=== PATIENT | male | born 1950 | race Hispanic/Latino ===

== ENCOUNTER 2023-07-02 16:23 | Emergency (ER) | payer OTHER ==
--- OUTSIDE RECORDS SUMMARY | 2023-07-02 16:40 | XMS REPORT | Continuity of Care Document ---
:1950 Author Organization [facility] t Address [address] [facility] [address] [place] [address] Care Team Providers Name Role Phone Brian Rosales Attending Clinician Unavailable LISSET GRAY Attending Clinician Unavailable PEE MALONEY Attending Clinician Unavailable MICHELL RICKETTS Attending Clinician Unavailable Lisset Gray MD Attending Clinician Doctor Unassigned, [place] Attending Clinician Unavailable Only, Adc Test Attending Clinician Unavailable Pob, Adc Lab Main Attending Clinician Unavailable LISSET GRAY Admitting Clinician Unavailable Lisset Gray MD Admitting Clinician Payers Payer Name Policy Type Policy Number Effective Date Expiration Date Sharri moreira MEDICARE PART A [id number] 2013 \T\ B 00:00:00 MEDICARE-PART B 5 [id number] 2020 00:00:00 WEB TPA 4 [id number] 2020 00:00:00 Problems Condition Condition Condition Status Onset Resolution Last Treating Co mments Source Name Details Category Date Date Treatment Clinician Date [id number] Mixed Problem Common hyperlipid [facility]ia [facility] [id number] Essential Problem Comm on (primary) Spirit hypertensi - [facility] [id number] Type 2 Problem Common diabetes Spirit mellitus - [facility] with [facility] long-term current use of insulin [id number] 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 [facility] Allergies, Adverse Reactions, Alerts Allergy Allergy Status Severity Reaction(s) Onset Inactive Treating Comm ents Source Name Type Date Date Clinician NO KNOWN Drug Active Univers ALLERGIE Class ity of S [facility] Social History Social Habit Start Date Stop Date Quantity Comments Source Exposure to Not sure [facility] SARS-CoV-2 (event) Medica l Branch History of Tobacco Common [facility] - [facility] Use [facility] Sex Assigned At Common Sp kiana - [facility] Tobacco use and 2020-12-08 2020-12-08 Never used [facility] exposure 00:00:00 00:00:00 Medical Branch Smoking Status Start Date Stop Date Source Never Smoker [facility] Unknown if ever smoked [facility] Medications Ordered Filled Start Stop Current Ordering Indication Dosage Frequency Signature Comments Components Source Medication Medication Date Date Medication? Clinician (SIG) Name Name aspirin 81 Yes 81mg Take 81 mg U nivers mg chewable 3-25 by mouth ity of tablet 14:37: daily. [address] Fenofibrate Yes 40mg Take 40 mg Univers 40 mg Tab 3-25 by mouth ity of 14:37: daily. [address] metFORMIN Yes 500mg Take 500 Uni vers 500 mg 3-25 mg by ity of tablet 14:37: mouth [address] [place] [address] ([facility] times [place] daily with meals. ramipriL 10 Yes 10mg Take 10 mg Univers mg capsule 3-25 by mouth ity o f 14:37: daily. [address] icosapent Yes Take by Unive rs ethyl 3-25 mouth. ity of (VASCEPA 14:37: [address] aspirin 81 Yes 81mg Take 81 mg U nivers mg chewable 3-25 by mouth ity of tablet 14:37: daily. [address] Fenofibrate Yes 40mg Take 40 mg Univers 40 mg Tab 3-25 by mouth ity of 14:37: daily. [address] metFORMIN Yes 500mg Take 500 Uni vers 500 mg 3-25 mg by ity of tablet 14:37: mouth 2 [place] [address] ([facility]) [facility] times [place] daily with meals. ramipriL 10 Yes 10mg Take 10 mg Univers mg capsule 3-25 by mouth ity o f 14:37: daily. [address] icosapent Yes Take by [facility] rs ethyl 3-25 mouth. ity of (VASCEPA 14:37: [place] ORAL) [address] [place] [address] lactated Yes 1000mL at 75 Univer s ringers IV 3-25 mL/hr, ity of infusion 14:15: 1,000 [place], [place] 1,000 mL 00 IV Medical Infusion, [place] CONTINUOUS , Starting Joaquina 12/09/20 at 0915, Until Discontinu ed, Routine, PACU HYDROcodone Yes 1{tbl} 1 tablet, Univers -acetaminop 3-25 Oral, ity of hen (NORCO 14:05: Q6HPRN, [place] 5) 5-325 mg 37 Starting [facility] norma tablet 1 Joaquina [place] tablet 12/09/20 at 0905, Until Discontinu ed, Routine, Pain (scale 4-6), PACU ondansetron Yes 4mg 4 mg, Slow Univers (ZOFRAN 3-25 IV Push, ity of (PF)) 14:05: PRN, 1 [place] injection 4 37 dose, Medical mg Starting Branch Joaquina 12/09/20 at 0905, Until Discontinu ed, Routine, Nausea and Vomiting (N/V), PACU water for Yes PRN, Univers irrigation 3-25 Starting ity o f irrigation 14:00: Jo[place]ina [place] solution 00 12/09/20 at Medic al 0900, [place] Until Discontinu ed, Routine, Intra-op NaCl 0.9% Yes PRN, Univers (NS) 3-25 Starting ity of injection 13:59: Jo[place] 00 12/09/20 at [facility] 0859, [place] Until Discontinu ed, Routine, Intra-op neomycin-po Yes PRN, [facility] s lymyxin-dex 3-25 Starting ity of amethasone 13:59: Joaqu[place] (MAXITROL) 00 12/09/20 at [facility] ical 3.5 0859[facility] mg/g-10,000 Until unit/g-0.1 Discontinu % ed, ophthalmic Routine, ointment Intra-op gentamicin 2021-0 Yes PRN, Univers injection 25 Starting ity of 13:58: [place] 00 12/09/20 at [facility] [address] [place] [address] Until Discontinu ed, BASSAM, Intra-op EPINEPHrine Yes PRN, Univer s (PF) - Starting ity of 1:1,000 (1 13:57: [place] mg/mL) 00 12/09/20 at [facility] (ADRENALIN 0857, Branch (PF)) Until injection Discontinu ed, Routine, Intra-op DUOVISC Yes PRN, Univers (DUOVISC 12-09 Starting ity of VISCO 13:57: [place] ELASTIC) 3 12/09/20 at [facility] ical %-4 %(0.5 0857, [place] mL) 1 % Until (0.55 mL) Discontinu intraocular ed, injection Routine, Intra-op dexamethaso Yes PRN, Univer s ne 12-09 Starting ity of (DECADRON 13:56: [place] PHOSPHATE) 12/09/20 at [facility] ical injection [address] [place] [address] Until Discontinu ed, Routine, Intra-op ceFAZolin Yes PRN, Univers (ANCEF) 12-09 Starting ity of injection 13:56: [place] 00 12/09/[address] Until Discontinu ed, BASSAM, Intra-op balanced Yes PRN, Univers salt soln 12-09 Starting ity of no.2 irrig. 13:55: Jo[place]ina [place] (BSS) 12/09/20 at [facility] ophthalmic 08, [place] solution Until Discontinu ed, Routine, Intra-op tetracaine Yes PRN, Univers (PONTOCAINE 12-09 Starting ity of ) 0.5 % 13:41: [place] ophthalmic 00 12/09/20 at [facility] ical drops [address] [place] [address] Until Discontinu ed, Routine, Intra-op eye block 0 Yes PRN, Univers syringe 11 12-09 Starting ity o f mL 13:41: [place] 00 12/09/20 at [facility] [address] [place] [address] Until Discontinu ed, Intra-op mydriatic 202- No .5mL 0.5 mL, Univ ers #5 12-09 Right Eye, ity of ophthalmic 12:45: 12:34 ONCE, 1 [place] solution 00 :00 dose, Joaquina Medica l 0.5 mL 12/09/20 at Branch syringe 0745, Routine, DSU Pre-op lactated 2020- No 1000mL at 42 Unive rs ringers IV 12-09 03-25 mL/hr, ity of infusion 12:45: 12:33 1,000 mL, [place] 1,000 mL 00 :00 IV Medical Infusion, [place] ONCE, 1 dose, Joaquina 12/09/20 at 0745, Routine, DSU Pre-op metFORMIN Yes 500mg Take 500 Uni vers 500 mg 3-23 mg by ity of tablet 18:23: mouth 2 [place] [address] (two) [facility] daily with meals. ramipriL 10 Yes 10mg Take 10 mg Univers mg capsule -23 by mouth ity o f 18:23: daily. [address] aspirin 81 Yes 81mg Take 81 mg U nivers mg chewable 3-23 by mouth ity of tablet 18:23: daily. [address] Fenofibrate Yes 40mg Take 40 mg Univers 40 mg Tab 3-23 by mouth ity of 18:23: daily. [address] Dorzolamide Dorzolamide No 1{drop_ BID Dorzolamid HCl-Timolol HCl-Timolol into_af e Mal Mal fected_ HCl-Timolo 22.3-6.8 22.3-6.8 eye} l Mal MG/ML MG/ML 22.3-6.8 MG/ML Fish Oil Fish Oil No Fish Oil Marion-3 Marion-3 Marion-3 metFORMIN metFORMIN No 1{table QD metFORMIN HCl 500 MG HCl 500 MG t_with_ HCl 500 MG a_meal} Fish Oil Fish Oil No Fish Oil Marion-3 Marion-3 Marion-3 Atorvastati Atorvastati No 1{table QD Atorvastat n Calcium n Calcium t} in Calcium 10 MG 10 MG 10 MG Aspirin Aspirin No 1{table QD Aspirin Adult Low Adult Low t} Adult Low Dose 81 MG Dose 81 MG Dose 81 MG Ramipril 10 Ramipril 10 No 1{capsu QD Ramipril MG MG le} 10 MG Rocklatan Rocklatan No 1{drop_ QD Rocklatan 0.02-0.005 0.02-0.005 into_af 0.02-0.005 % % fected_ % eye} Ramipril 10 Ramipril 10 No 1{capsu QD Ramipril MG MG le} 10 MG Marion 3 Marion 3 No Marion 3 Dorzolamide Dorzolamide No 1{drop_ BID Dorzolamid HCl-Timolol HCl-Timolol into_af e Mal Mal fected_ HCl-Timolo 22.3-6.8 22.3-6.8 eye} l Mal MG/ML MG/ML 22.3-6.8 MG/ML metFORMIN metFORMIN No 1{table QD metFORMIN HCl 500 MG HCl 500 MG t_with_ HCl 500 MG a_meal} Fish Oil Fish Oil No Fish Oil Marion-3 Marion-3 Marion-3 metFORMIN metFORMIN No 1{table QD metFORMIN HCl 500 MG HCl 500 MG t_with_ HCl 500 MG a_meal} Aspirin Aspirin No 1{table QD Aspirin Adult Low Adult Low t} Adult Low Dose 81 MG Dose 81 MG Dose 81 MG Ramipril 10 Ramipril 10 No 1{capsu QD Ramipril MG MG le} 10 MG Atorvastati Atorvastati No 1{table QD Atorvastat n Calcium n Calcium t} in Calcium 10 MG 10 MG 10 MG Ramipril 10 Ramipril 10 No 1{capsu QD Ramipril MG MG le} 10 MG Marion 3 Marion 3 No Marion 3 Dorzolamide Dorzolamide No 1{drop_ BID Dorzolamid HCl-Timolol HCl-Timolol into_af e Mal Mal fected_ HCl-Timolo 22.3-6.8 22.3-6.8 eye} l Mal MG/ML MG/ML 22.3-6.8 MG/ML [facility] No 1{drop_ QD Rocklatan 0.02-0.005 0.02-0.005 into_af 0.02-0.005 % % fected_ % eye} metFORMIN metFORMIN No 1{table QD metFORMIN HCl 500 MG HCl 500 MG t_with_ HCl 500 MG a_meal} Aspirin Aspirin No 1{table QD Aspirin Adult Low Adult Low t} Adult Low Dose 81 MG Dose 81 MG Dose 81 MG Fish Oil Fish Oil No Fish Oil Marion-3 Marion-3 Marion-3 Atorvastati Atorvastati No 1{table QD Atorvastat n Calcium n Calcium t} in Calcium 10 MG 10 MG 10 MG Ramipril 10 Ramipril 10 No 1{capsu QD Ramipril MG MG le} 10 MG [facility] No 1{drop_ QD Rocklatan 0.02-0.005 0.02-0.005 into_af 0.02-0.005 % % fected_ % eye} Marion 3 Marion 3 No Marion 3 Ramipril 10 Ramipril 10 No 1{capsu QD Ramipril MG MG le} 10 MG metFORMIN metFORMIN No 1{table QD metFORMIN HCl 500 MG HCl 500 MG t_with_ HCl 500 MG a_meal} Dorzolamide Dorzolamide No 1{drop_ BID Dorzolamid HCl-Timolol HCl-Timolol into_af e Mal Mal fected_ HCl-Timolo 22.3-6.8 22.3-6.8 eye} l Mal MG/ML MG/ML 22.3-6.8 MG/ML [facility] No 1{drop_ QD Rocklatan 0.02-0.005 0.02-0.005 into_af 0.02-0.005 % % fected_ % eye} Atorvastati Atorvastati No 1{table QD Atorvastat n Calcium n Calcium t} in Calcium 20 MG 20 MG 20 MG Marion 3 Marion 3 No Marion 3 Ramipril 10 Ramipril 10 No 1{capsu QD Ramipril MG MG le} 10 MG Aspirin Aspirin No 1{table QD Aspirin Adult Low Adult Low t} Adult Low Dose 81 MG Dose 81 MG Dose 81 MG Dorzolamide Dorzolamide No 1{drop_ BID Dorzolamid HCl-Timolol HCl-Timolol into_af e Mal Mal fected_ HCl-Timolo 22.3-6.8 22.3-6.8 eye} l Mal MG/ML MG/ML 22.3-6.8 MG/ML Fish Oil Fish Oil No Fish Oil Marion-3 Marion-3 Marion-3 metFORMIN metFORMIN No 1{table QD metFORMIN HCl 500 MG HCl 500 MG t_with_ HCl 500 MG a_meal} [facility] No 1{drop_ QD Rocklatan 0.02-0.005 0.02-0.005 into_af 0.02-0.005 % % fected_ % eye} Ramipril 10 Ramipril 10 No 1{capsu QD Ramipril MG MG le} 10 MG metFORMIN metFORMIN No 1{table QD metFORMIN HCl 500 MG HCl 500 MG t_with_ HCl 500 MG a_meal} Marion 3 Marion 3 No Marion 3 Aspirin Aspirin No 1{table QD Aspirin Adult Low Adult Low t} Adult Low Dose 81 MG Dose 81 MG Dose 81 MG Dorzolamide Dorzolamide No 1{drop_ BID Dorzolamid HCl-Timolol HCl-Timolol into_af e Mal Mal fected_ HCl-Timolo 22.3-6.8 22.3-6.8 eye} l Mal MG/ML MG/ML 22.3-6.8 MG/ML Fish Oil Fish Oil No Fish Oil Marion-3 Marion-3 Marion-3 Atorvastati Atorvastati No 1{table QD Atorvastat n Calcium n Calcium t} in Calcium 20 MG 20 MG 20 MG Dorzolamide Dorzolamide No 1{drop_ BID Dorzolamid HCl-Timolol HCl-Timolol into_af e Mal Mal fected_ HCl-Timolo 22.3-6.8 22.3-6.8 eye} l Mal MG/ML MG/ML 22.3-6.8 MG/ML Marion 3 Marion 3 No Marion 3 Fish Oil Fish Oil No Fish Oil Marion-3 Marion-3 Marion-3 Ramipril 10 Ramipril 10 No 1{capsu QD Ramipril MG MG le} 10 MG Rocklatan Rocklatan No 1{drop_ QD Rocklatan 0.02-0.005 0.02-0.005 into_af 0.02-0.005 % % fected_ % eye} Atorvastati Atorvastati No 1{table QD Atorvastat n Calcium n Calcium t} in Calcium 20 MG 20 MG 20 MG Aspirin Aspirin No 1{table QD Aspirin Adult Low Adult Low t} Adult Low Dose 81 MG Dose 81 MG Dose 81 MG metFORMIN metFORMIN No 1{table QD metFORMIN HCl 500 MG HCl 500 MG t_with_ HCl 500 MG a_meal} Dorzolamide Dorzolamide No 1{drop_ BID Dorzolamid HCl-Timolol HCl-Timolol into_af e Mal Mal fected_ HCl-Timolo 22.3-6.8 22.3-6.8 eye} l Mal MG/ML MG/ML 22.3-6.8 MG/ML Marion 3 Marion 3 No Marion 3 Fish Oil Fish Oil No Fish Oil Marion-3 Marion-3 Marion-3 Ramipril 10 Ramipril 10 No 1{capsu QD Ramipril MG MG le} 10 MG [facility] No 1{drop_ QD Rocklatan 0.02-0.005 0.02-0.005 into_af 0.02-0.005 % % fected_ % eye} Atorvastati Atorvastati No 1{table QD Atorvastat n Calcium n Calcium t} in Calcium 20 MG 20 MG 20 MG Aspirin Aspirin No 1{table QD Aspirin Adult Low Adult Low t} Adult Low Dose 81 MG Dose 81 MG Dose 81 MG metFORMIN metFORMIN No 1{table QD metFORMIN HCl 500 MG HCl 500 MG t_with_ HCl 500 MG a_meal} [facility] No 1{drop_ QD [place] 0.02-0.005 0.02-0.005 into_af 0.02-0.005 % % fected_ % eye} Atorvastati Atorvastati No 1{table QD Atorvastat n Calcium n Calcium t} in Calcium 20 MG 20 MG 20 MG Marion 3 Marion 3 No Marion 3 Ramipril 10 Ramipril 10 No 1{capsu QD Ramipril MG MG le} 10 MG Aspirin Aspirin No 1{table QD Aspirin Adult Low Adult Low t} Adult Low Dose 81 MG Dose 81 MG Dose 81 MG Vital Signs Vital Name Observation Time Observation Value Comments Source height 2022-07-31 10:00:00 68.5 [in_i] [facility] weight 2022-07-31 10:00:00 163.9 [lb_av] Common [facility] temperature 2022-07-31 10:00:00 97.7 [degF] [facility] bmi 2022-07-31 10:00:00 24.56 kg/m2 [facility] oximetry 2022-07-31 10:00:00 98 % Common [facility] respiratory rate 2022-07-31 10:00:00 18 /min Comm on [facility] blood pressure 2022-07-31 10:00:00 137 mm[Hg] Common [facility] - systolic [facility] blood pressure 2022-07-31 10:00:00 79 mm[Hg] Common [facility] - diastolic [facility] height 2022-03-29 08:40:00 68.5 [in_i] Common [facility] weight 2022-03-29 08:40:00 163.8 [lb_av] [facility] temperature 2022-03-29 08:40:00 98.0 [degF] [facility] bmi 2022-03-29 08:40:00 24.54 kg/m2 [facility] oximetry 2022-03-29 08:40:00 98 % [facility] respiratory rate 2022-03-29 08:40:00 18 /min Comm on [facility] blood pressure 2022-03-29 08:40:00 137 mm[Hg] Common [facility] - systolic [facility] blood pressure 2022-03-29 08:40:00 72 mm[Hg] Common [facility] diastolic [facility] height 2022-03-29 08:50:00 68.5 [in_i] Common [facility] weight 2022-03-29 08:50:00 163.8 [lb_av] [facility] temperature 2022-03-29 08:50:00 98.0 [degF] [facility] bmi 2022-03-29 08:50:00 24.54 kg/m2 [facility] oximetry 2022-03-29 08:50:00 98 % [facility] respiratory rate 2022-03-29 08:50:00 18 /min Comm on [facility] blood pressure 2022-03-29 08:50:00 137 mm[Hg] Common [facility] - systolic [facility] blood pressure 2022-03-29 08:50:00 72 mm[Hg] Common [facility] - diastolic [facility] height 2022-02-22 10:50:00 68 [in_i] [facility] weight 2022-02-22 10:50:00 164.1 [lb_av] [facility] temperature 2022-02-22 10:50:00 98.2 [degF] Common [facility] bmi 2022-02-22 10:50:00 24.95 kg/m2 [facility] oximetry 2022-02-22 10:50:00 97 % [facility] respiratory rate 2022-02-22 10:50:00 18 /min Comm on [facility] blood pressure 2022-02-22 10:50:00 135 mm[Hg] Common [facility] - systolic [facility] blood pressure 2022-02-22 10:50:00 74 mm[Hg] Common [facility] diastolic [facility] Body temperature 2020-12-09 14:25:00 36.67 [facility] 2020-12-09 14:25:00 26 /min [facility] Oxygen saturation in 2020-12-09 14:25:00 98 /min [facility] Arterial blood by [facility] Pulse oximetry Branch Systolic blood 2020-12-09 14:25:00 121 mm[Hg] Univer sity of pressure [facility] Diastolic blood 2020-12-09 14:25:00 74 mm[Hg] Unive [facility] Heart rate 2020-12-09 14:25:00 60 /min [facility] Body height 2020-12-08 17:15:[address] [facility] Body weight 2020-12-08 17:15:[address] [facility] BMI 2020-12-08 17:15:00 29.12 kg/m2 [facility] Procedures Procedure Date / Time Performed Performing Clinician Sourc e POCT GLUCOSE(AGE 2020-12-09 12:30:00 Leonardo Crawford [facility] >30DAYS) [facility] POCT GLUCOSE 2020-12-09 12:19:00 Lisset Gray [facility] (AUTOMATED) [facility] DAY SURGERY - ADC 2020-12-09 05:01:00 Doctor Unassigned, No [facility] ASSIGN[facility] OF BENEFITS 2020-11-30 16:01:25 Doctor Unassigned, No [facility] Encounters Start End Encounter Admission Attending Care Care Encounter Source Date/Time Date/Time Type Type Clinicians Facility Department ID 2023-03-26 Outpatient Rosales, STLMLC STLMLC [id number] Common 15:14:01 Brian 000[address] [facility] 2022-11-24 Outpatient Rosales, STLMLC STLMLC [id number] Common 08:52:03 [facility] [address] [facility] 2022-08-08 Outpatient Rosales, STLMLC STLMLC [id number] Common 12:29:01 Brian 23983 [facility] 2022-07-27 Outpatient Rosales, STLMLC STLMLC [id number] Common 09:58:02 Brian [address]8918 [facility] 2022-02-28 Outpatient Rosales, STLMLC STLMLC [id number] Common 16:01:04 [facility] [address] [facility] 2021-07-17 Outpatient Willi GRAY [facility] OPH [id number] Univers 06:19:47 LISSET pathak [facility] 2022-09-05 2022-09-05 (TEL) STLMLC STLMLC [id number] Co mmon 00:00:00 00:00:00 [facility] 2022-09-04 2022-09-04 Outpatient LYLY MALONEY [id number] [place] 00:00:00 00:00:00 PEE saavedra 2022-07-31 2022-07-31 OFFICE STLMLC STLMLC [id number] Co mmon 00:00:00 00:00:00 VISIT Spirit ESTAB PT - [facility] LEVEL 4 [facility] 2022-06-29 2022-06-29 (TEL) STLMLC STLMLC [id number] Co mmon 00:00:00 00:00:00 [facility] - [facility] 2022-03-29 2022-03-29 OFFICE STLMLC STLMLC [id number] Co mmon 00:00:00 00:00:00 VISIT Spirit ESTAB PT - [facility] LEVEL 4 [facility] 2022-03-29 2022-03-29 SUB ANNUAL STLMLC STLMLC [id number] Common 00:00:00 00:00:00 MCR [facility] WELLNESS - [facility] VISIT [facility] 2022-02-22 2022-02-22 (TEL) STLMLC STLMLC [id number] Co mmon 00:00:00 00:00:00 Spirit - [facility] 2022-02-22 2022-02-22 OFFICE STLMLC STLMLC [id number] Co mmon 00:00:00 00:00:00 VISIT NEW Spir it PT LEVEL 3 - [facility] 2021-12-16 2021-12-16 Outpatient LYLY MALONEY [id number] [place] 00:00:00 00:00:00 PEE saavedra 2021-05-04 2021-05-04 Outpatient LYLY MALONEY [id number] [place] 16:00:00 16:00:00 PEE saavedra 2020-12-14 2020-12-[address] [facility] [id number] Univers 10:40:00 10:40:00 MICHELL ity of [facility] 2020-12-09 2020-12-09 [facility] [id number] Univers 07:05:00 09:37:00 Encounter Lisset Delgado 350.1.13.10 ity Everardo Slaughter 4.2.7.2.686 [place] [id number] [place] [address] Branch 2020-12-09 2020-12-09 Orders Doctor CASH [id number] Univers 00:00:00 00:00:00 Only Unassigned, IAM 350.1.13.10 ity of [place] [facility] 4.2.7.2.686 Lew as [id number] [facility] 009 [place] 2020-12-08 2020-12-08 Laboratory Only, [facility] Test [facility] 1.2.840. [id number] Univers 09:03:06 09:18:06 Only Lisset Gray 350.1.1 3.10 [place]y [place] 4[place]7.2.686 [place] [id number] [address] 2020-12-08 2020-12-[address] [facility] [id number] Univers 09:00:00 09:00:00 LISSET pathak [facility] 2020-11-30 2020-11-30 Shop Assistant April, [facility] Lab Main [facility] 1.2.8 40.114 [id number] Univers 11:04:15 11:19:15 Visit Lisset Gray 350.1.1 3.10 ity [facility] 4.2.7.2.686 [place] [facility] [phone] [place] [address] 2020-11-30 2020-11-[address] [facility] [id number] Univers 10:45:00 10:45:00 LISSET pathak [facility] 2020-11-30 2020-11-30 Orders Doctor SHAILESH [id number] Univers 00:00:00 00:00:00 Only Unassigned IAM 350.1.13.10 ity of [place] [facility] 4.2.7.2.686 [place] as [id number] [address] 2020-11-23 2020-11-[address] [facility] [id number] Univers 10:20:00 10:21:52 MICHELL sam [facility] Results Test Description Test Time Test Comments Results Result Comments Source Lipid Panel With LDL/HDL Ratio 2022-03-21 00:00:00 Test Item Value Reference Range Interpretation Comme nts Cholesterol, Total (test code 113 mg/dL See_Comment [Automated message] The system = 3-) which generated this result transmitted ref erence range: 100-199 mg/dL. The reference range was not u sed to interpret this result as normal/abnormal. Triglycerides (test code = 91 mg/dL See_Comment [Automated message] The system 2571-8) which generated this result transmitted ref erence range: 0-149 mg/dL. Th e reference range was not used to interpret this result as ning l/abnormal. HDL Cholesterol (test code = 60 mg/dL See_Comment [Automated message] The system 2085-9) which generated this result transmitted ref erence range: >39 mg/dL. The refe rence range was not used to int erpret this result as ning l/abnormal. Prostate-Specific Ag, [id number] 00:00:00 Test Item Value Reference Range Interpretation Comments Prostate Specific Ag 1.3 ng/mL See_Comment [Autom ated message] (test code = 2857-1) The sys tem which generated this result transmitted ref erence range: 0.0-4.0 ng/mL. The reference r kyle was not used to int erpret this result as normal/abnormal . Microalbumin/Creat Ratio, Random [id number] 00:00:00 Test Item Value Reference Range Interpretation Comments Creatinine, Urine 85.3 mg/dL Not Estab. mg/dL (test code = 2161-8) Albumin, Urine 8.0 ug/mL Not Estab. ug/mL (test code = 36378-4) Alb/Creat Ratio 9 mg/g creat See_Comment [Automated message] (test code = The system [facility] [place] 512[address]-0) generated this result transmitted ref erence range: 0-29 mg/ g creat. The reference r kyle was not used to int erpret this result as normal/abnormal . Hemoglobin [id number] 00:00:00 Test Item Value Reference Range Interpretation Comments Hemoglobin A1c (test 6.1 % See_Comment H [Autom ated message] The code = 4548-4) system which generated this result tra nsmitted reference range : 4.8-5.6 %. The referenc e range was not used to interpret this result as normal/abnormal . Comp. Metabolic Panel (14) (CMP)2022-03-21 00:00:00 Test Item Value Reference Range Interpretation Comments Glucose (test code = 104 mg/dL See_Comment H [Autom ated message] 2275-7) The system [employer] generated this result transmitted ref erence range: 65-99 mg /dL. The reference r kyle was not used to interpret this result as normal/abnor mal. BUN (test code = 11 mg/dL See_Comment [Automated message] 3094-0) The system [employer] generated this result transmitted ref erence range: 8-27 mg/ dL. The reference r kyle was not used to interpret this result as normal/abnor mal. Creatinine (test code 0.81 mg/dL See_Comment [Auto mated message] = 2160-0) The system [employer] generated this result transmitted ref erence range: 0.76-1.2 7 mg/dL. The refe rence range was not u sed to interpret this result as normal/abnor mal. BUN/Creatinine Ratio 14 10-24 (test code = 3097-3) Sodium (test code = 138 mmol/L See_Comment [Automa benjamin message] 9351-2) The system [employer] generated this result transmitted ref erence range: 134-144 mmol/L. The ref erence range was not u sed to interpret this result as normal/abnor mal. Potassium (test code = 4.6 mmol/L See_Comment [Aut omated message] 5083-3) The system [employer] generated this result transmitted ref erence range: 3.5-5.2 mmol/L. The ref erence range was not u sed to interpret this result as normal/abnor mal. Chloride (test code = 101 mmol/L See_Comment [Auto mated message] 6285-0) The system [employer] generated this result transmitted ref erence range: 96-106 m mol/L. The reference r kyle was not used to interpret this result as normal/abnor mal. Carbon Dioxide, Total 26 mmol/L See_Comment [Auto mated message] (test code = 2027-9) The s tem which generated this result transmitted ref erence range: 20-29 mm ol/L. The reference r kyle was not used to interpret this result as normal/abnor mal. Calcium (test code = 9.7 mg/dL See_Comment [Autom ated message] 09690-9) The system [facility] generated this result transmitted ref erence range: 8.6-10.2 mg/dL. The refe rence range was not u sed to interpret this result as normal/abnor mal. Protein, Total (test 7.2 g/dL See_Comment [Autom ated message] code = 2885-2) The system [facility] generated this result transmitted ref erence range: 6.0-8.5 g/dL. The reference r kyle was not used to interpret this result as normal/abnor mal. Albumin (test code = 4.8 g/dL See_Comment H [Autom ated message] 1751-7) The system [facility] generated this result transmitted ref erence range: 3.7-4.7 g/dL. The reference r kyle was not used to interpret this result as normal/abnor mal. Globulin, Total (test 2.4 g/dL See_Comment [Auto mated message] code = 11196-4) The system [facility] generated this result transmitted ref erence range: 1.5-4.5 g/dL. The reference r kyle was not used to interpret this result as normal/abnor mal. A/G Ratio (test code = 2.0 1.2-2.2 1758-0) Bilirubin, Total (test 1.8 mg/dL See_Comment H [Aut omated message] code = 1974-2) The system [facility] generated this result transmitted ref erence range: 0.0-1.2 mg/dL. The reference r kyle was not used to interpret this result as normal/abnor mal. Alkaline Phosphatase 58 IU/L See_Comment [Autom ated message] (test code = 6768-6) The sys tem which generated this result transmitted ref erence range: 44-121 I U/L. The reference r kyle was not used to interpret this result as normal/abnor mal. AST (SGOT) (test code 22 IU/L See_Comment [Auto mated message] = 1920-8) The system [facility] generated this result transmitted ref erence range: 0-40 IU/ L. The reference range was not used to int erpret this result as normal/abnormal . ALT (SGPT) (test code 18 IU/L See_Comment [Auto mated message] = 3762-6) The system whic h generated this result transmitted ref erence range: 0-44 IU/ L. The reference range was not used to int erpret this result as normal/abnormal . CBC With Differential/[id number] 00:00:00 Test Item Value Reference Range Interpretation Comments WBC (test code = 5.8 x10E3/uL See_Comment [Automated 2269-2) message] The sy stem which generated this result transmitted reference range : 3.4-10.8 x10E3/ uL. The reference r kyle was not used to interpret this result as normal/abnormal . RBC (test code = 5.29 x10E6/uL See_Comment [Automate d 499-8) message] The sy stem which generated this result transmitted reference range : 4.14-5.80 x10E6 /uL. The reference r kyle was not used to interpret this result as normal/abnormal . Hemoglobin (test code 15.3 g/dL See_Comment [Auto mated = 418-7) message] The sy stem which generated this result transmitted reference range : 13.0-17.7 g/dL. The reference range was not used to interpret this result as normal/abnormal . Hematocrit (test code 47.2 % See_Comment [Auto mated = 4784-3) message] The sy stem which generated this result transmitted reference range : 37.5-51.0 %. Th e reference range was not used to interpret this result as normal/abnormal . MCV (test code = 89 fL See_Comment [Automated 527-2) message] The sy stem which generated this result transmitted reference range : 79-97 fL. The reference range was not used to interpret this result as normal/abnormal . MCH (test code = 28.9 pg See_Comment [Automated 815-6) message] The sy stem which generated this result transmitted reference range : 26.6-33.0 pg. T he reference range was not used to interpret this result as normal/abnormal . MCHC (test code = 32.4 g/dL See_Comment [Automate d 427-4) message] The sy stem which generated this result transmitted reference range : 31.5-35.7 g/dL. The reference range was not used to interpret this result as normal/abnormal . RDW (test code = 13.0 % See_Comment [Automated 788-0) message] The sy stem which generated this result transmitted reference range : 11.6-15.4 %. Th e reference range was not used to interpret this result as normal/abnormal . Platelets (test code 311 x10E3/uL See_Comment [Autom ated = 777-3) message] The sy stem which generated this result transmitted reference range : 150-450 x10E3/u L. The reference r kyle was not used to interpret this result as normal/abnormal . Neutrophils (test 51 % Not Estab. % code = 770-8) Lymphs (test code = 32 % Not Estab. % 736-9) Monocytes (test code 9 % Not Estab. % = 5905-5) Eos (test code = 6 % Not Estab. % 713-8) Basos (test code = 1 % Not Estab. % 706-2) Immature Cells (test code = UNLOINC) Neutrophils 3.0 x10E3/uL See_Comment [Automated (Absolute) (test code messag e] The system = 751-8) which generated this result transmitted reference range : 1.4-7.0 x10E3/u L. The reference r kyle was not used to interpret this result as normal/abnormal . Lymphs (Absolute) 1.9 x10E3/uL See_Comment [Automate d (test code = 731-0) message] The system which generated this result transmitted reference range : 0.7-3.1 x10E3/u L. The reference r kyle was not used to interpret this result as normal/abnormal . Monocytes(Absolute) 0.5 x10E3/uL See_Comment [Automa benjamin (test code = 742-7) message] The system which generated this result transmitted reference range : 0.1-0.9 x10E3/u L. The reference r kyle was not used to interpret this result as normal/abnormal . Eos (Absolute) (test 0.4 x10E3/uL See_Comment [Autom ated code = 711-2) message] The s ystem which generated this result transmitted reference range : 0.0-0.4 x10E3/u L. The reference r kyle was not used to interpret this result as normal/abnormal . Baso (Absolute) (test 0.1 x10E3/uL See_Comment [Auto mated code = 704-7) message] The s ystem which generated this result transmitted reference range : 0.0-0.2 x10E3/u L. The reference r kyle was not used to interpret this result as normal/abnormal . Immature Granulocytes 1 % Not Estab. % (test code = 31832-9) Immature Grans (Abs) 0.0 x10E3/uL See_Comment [Autom ated (test code = 04790-4) messag e] The system which generated this result transmitted reference range : 0.0-0.1 x10E3/u L. The reference r kyle was not used to interpret this result as normal/abnormal . NRBC (test code = 78309-9) Hematology Comments: (test code = 39554-2) TSH reflex to [id number] 00:00:00 Test Item Value Reference Range Interpretation Comments TSH (test code = 2.400 uIU/mL See_Comment [Automated message] The 70147-0) system which ge nerated this result tra nsmitted reference range : 0.450-4.500 uIU /mL. The reference range was not used to interpr et this result as normal/abnormal . POCT GLUCOSE (AUTOMATED)2020-12-09 13:20:45 Test Item Value Reference Range Interpretation Comments POCT GLU (test code = 7708236939) 94 mg/dL 70-110 Lab Interpretation (test code = Normal 67382-6) [id number] 12:30:00 Test Item Value Reference Range Interpretation Comments POCT Glu (age>30days) (test code = 94 mg/dL 70-110 3342) [facility]
[2023-07-02] MEDS ORDERED: BUPIVACAINE 0.5% PF 10 ML VIAL ONE (17:01)
[2023-07-02] MEDS ORDERED: HYDROCODONE/APAP 5/325 MG TAB ONE (17:01)
[2023-07-02] MEDS ORDERED: LIDOCAINE 1% MPF 5 ML VIAL ONE (17:03)
[2023-07-02] MEDS ORDERED: TDAP (DIPHTH,PERTUSS(ACELL),TET VAC) 0.5 ML VIAL IMVAC ONE (17:04)
--- NOTE | 2023-07-02 17:40 | RAD REPORT ---
EXAM DESCRIPTION: RAD - Finger-Thumb Right - 07/02/2023 5:32 pm CLINICAL HISTORY: laceration Pain and swelling COMPARISON: No comparisons FINDINGS: Laceration is present distal first finger. No radiopaque foreign body. No fracture evident . Moderate degenerative changes.
--- NOTE | 2023-07-02 18:44 | EDPHYS ---
Physician Documentation [facility] Name: Gilberto Santoyo Age: 73 yrs Sex: Male : 1950 Arrival Date: 07/02/2023 Time: 16:23 Bed 12 Private MD: ED Physician Sajan Gonzalez HPI: 07/02 16:50 This 73 yrs old Male presents to ER via Ambulatory with complaints of Finger cp Injury. 16:50 The patient or guardian reports a laceration, clean. cp 16:50 The complaints affect the garcia side of right thumb. Context: resulted from use of cp table saw. Onset: The symptoms/episode began/occurred just prior to arrival. Associated signs and symptoms: The patient has no apparent associated signs or symptoms. Historical: - Allergies: 16:46 No Known Allergies; nj1 - PMHx: 16:46 Diabetes mellitus; Hypertensive disorder; Hypercholesterolemia; nj1 - PSHx: 16:46 Hernia repair; nj1 - Immunization history:: Last tetanus immunization: unknown. - Social history:: Smoking status: Patient denies any tobacco usage or history of. ROS: 16:57 MS/extremity: Positive for laceration, of the right thumb, cp 16:57 Constitutional: Negative for body aches, chills, fever, poor PO intake, cp 16:57 Cardiovascular: Negative for chest pain, 16:57 Respiratory: Negative for cough, shortness of breath, wheezing, 16:57 Abdomen/GI: Negative for abdominal pain, vomiting, diarrhea, constipation, 16:57 Neuro: Negative for numbness, tingling, weakness, 16:57 All other systems are negative, Exam: 17:00 Constitutional: The patient appears in no acute distress, alert, awake, well developed, cp well nourished, uncomfortable, 17:00 Head/Face: Normocephalic, atraumatic. cp 17:00 Musculoskeletal/extremity: Extremities: grossly normal except: noted in the garcia side cp of right thumb: laceration, There is no evidence of damage to nail, tendon intact, digit neurovascular intact, ROM: full active range of motion, in the right thumb, Perfusion: the extremity is normally perfused throughout, Sensation intact. Vital Signs: 16:43 BP 150 / 90; Pulse 64; Resp 17; Temp 97.8(O); Pulse Ox 100% ; Weight 72.57 kg; Height 5 nj1 ft. 4 in. ; Pain 5/10; 18:18 BP 148 / 71; Pulse 84; Resp 19; Pulse Ox 98% on R/A; kd3 16:43 Body Mass Index 27.46 (72.57 kg, 162.56 cm) [facility] 16:43 Pain Scale: Adult nj1 Laceration: 18:45 Wound Repair of 3cm ( 1.2in ) subcutaneous laceration to garcia side distal phalanx cp right thumb. Linear shaped.. Distal neuro/vascular/tendon intact. Anesthesia: Digital block administered with 8 mls of Lido/Marcaine. Wound prep: Moderate cleansing by me, Wound irrigation by me. Skin closed with 8 4-0 Prolene using interrupted sutures and sterile technique. Dressed with 4x4's. Patient tolerated well. MDM: 16:50 Patient medically screened. 17:00 Differential diagnosis: open fracture, closed fracture. 18:43 Data reviewed: vital signs, nurses notes, radiologic studies, plain films. 18:43 I considered the following discharge prescriptions or medication management in the emergency department Medications were administered in the Emergency Department. See MAR. Independent interpretation of the following test(s) in the Emergency Department X-Ray: My interpretation is images of right thumb negative for fracture. Counseling: I had a detailed discussion with the patient and/or guardian regarding the historical points, exam findings, and any diagnostic results supporting the discharge/admit diagnosis, radiology results, the need for outpatient follow up, a family practitioner, to return to the emergency department if symptoms worsen or persist or if there are any questions or concerns that arise at home. 07/02 16:45 Order name: XRAY Finger-Thumb RIGHT; Complete Time: 17:58 07/02 17:58 Interpretation: Reviewed. 07/02 18:42 Order name: Wound dressing; Complete Time: 19:05 07/02 18:42 Order name: Splint - Finger; Complete Time: 19:05 Administered Medications: 16:56 Drug: Tetanus-Diphtheria Toxoid IM Adult 0.5 ml IM once; Provide Vaccine Information kd3 Statement (VIS). {Information Support Project Manager: [employer] Around; Exp: SunFeb 07 2025; Lot #: [id number]; Series: 1 of 1; Patient Consent: Obtained; Date/Time: ; Source Name: Gilberto Santoyo; Source Relationship: Self; Address Information: [address] [place] [address]; ; Education: Provided; VIS Presented Date: ; VIS Publication: Tetanus/Diphtheria (Td) Vaccine VIS 12/26/2016 (historic)} Route: IM; Site: right deltoid; 19:05 Follow up: Response: No adverse reaction kd3 17:07 Drug: HYDROcodone-acetaminophen PO 5 mg-325 mg 1 tabs PO once Route: PO; kd3 19:05 Follow up: Response: No adverse reaction; Pain is decreased kd3 19:05 Drug: Lidocaine Infiltration (1 %) 5 ml 5 ml Infiltration once; to bedside Volume: 5 kd3 ml; Route: Infiltration; 19:05 Drug: Bupivacaine Infiltration (0.5 %) 5 ml 10 ml Infiltration once Volume: 10 ml; kd3 Route: Infiltration; Disposition: 16:58 I was immediately available on-site in the Emergency Department for consultation in the ms3 care of the patient. Disposition Summary: 07/02/23 18:43 Discharge Ordered Notes: Location: Home cp Problem: new cp Symptoms: have improved cp Condition: Stable cp Diagnosis - Laceration without foreign body of right thumb without damage to nail, initial cp encounter Followup: cp - With: Private Physician - When: 10 - 14 days - Reason: Staple/Suture removal Discharge Instructions: - Discharge Summary Sheet cp - Laceration Care, Adult cp - Sutured Wound Care cp Forms: - Medication Reconciliation Form cp - Thank You Letter cp - Antibiotic Education cp - Prescription Opioid Use cp - Patient Portal Instructions cp - Leadership Thank You Letter cp Prescriptions: - Cephalexin 500 mg Oral Capsule - take 1 capsule ORAL route every 8 hours for 10 days; 30 capsule; Refills: 0, cp Product Selection Permitted Signatures: Dispatcher [employer] Oscar Frank PA PA cp Sims, Marcus, DO DO ms3 Lacy Mancia RN RN kd3 Rosasna Scanlon RN RN nj1
--- NOTE | 2023-07-02 18:44 | ER ---
Nurse's Notes [facility] Name: Gilberto Santoyo Age: 73 yrs Sex: Male : 1950 Arrival Date: 07/02/2023 Time: 16:23 Bed 12 Private MD: Diagnosis: Laceration without foreign body of right thumb without damage to nail, initial encounter Presentation: 07/02 16:43 Chief complaint: Patient states: Right thumb laceration, got cut on a table saw. [facility] Coronavirus screen: Vaccine status: Patient reports receiving the 2nd dose of the covid vaccine. Ebola Screen: Patient denies travel to an Ebola-affected area in the 21 days before illness onset. Initial Sepsis Screen: Does the patient meet any 2 criteria? No. Patient's initial sepsis screen is negative. Does the patient have a suspected source of infection? No. Patient's initial sepsis screen is negative. Risk Assessment: Do you want to hurt yourself or someone else? Patient reports no desire to harm self or others. Onset of symptoms was July 02, 2023 at 16:00. 16:43 Method Of Arrival: Ambulatory [facility] 16:43 Acuity: JONN 3 nj1 Triage Assessment: 19:12 General: Appears in no apparent distress. Behavior is calm, cooperative. Pain: jj7 Complains of pain in right thumbnail. Musculoskeletal: Injury Description: Laceration sustained to right thumbnail. Historical: - Allergies: 16:46 No Known Allergies; nj1 - PMHx: 16:46 Diabetes mellitus; Hypertensive disorder; Hypercholesterolemia; nj1 - PSHx: 16:46 Hernia repair; [facility] Historical Immunization: - Administered Vaccines 19:05 Lidocaine Infiltration (1 %) 5 ml kd3 19:05 Bupivacaine Infiltration (0.5 %) 5 ml kd3 17:07 HYDROcodone-acetaminophen PO 5 mg-325 mg 1 tabs kd3 16:56 Tetanus-Diphtheria Toxoid IM Adult 0.5 ml kd3 Clinical Lab Technologist: Quaero.; Exp: Sat Feb 07 2025; Lot #: [id number]; Series: 1 of 1; Patient Consent: Obtained; Date/Time: ; Source Name: Gilberto Santoyo; Source Relationship: Self; Address Information: [address] [place] [address], [place] [address]; ; Education: Provided; VIS Presented Date: ; VIS Publication: Tetanus/Diphtheria (Td) Vaccine VIS 12/26/2016 (historic) - Immunization history:: Last tetanus immunization: unknown. - Social history:: Smoking status: Patient denies any tobacco usage or history of. Screenin:12 [facility] ED Fall Risk Assessment (Adult) History of falling in the last 3 months, jj7 including since admission No falls in past 3 months (0 pts) Confusion or Disorientation No (0 pts) Intoxicated or Sedated No (0 pts) Impaired Gait No (0 pts) Mobility Assist Device Used No (0 pt) Altered Elimination No (0 pt) Score/Fall Risk Level 0 - 2 = Low Risk Maintained a safe environment. Abuse screen: Denies threats or abuse. Denies injuries from another. Nutritional screening: No deficits noted. Tuberculosis screening: No symptoms or risk factors identified. Assessment: 18:19 General: provider at bedside . kd3 Vital Signs: 16:43 BP 150 / 90; Pulse 64; Resp 17; Temp 97.8(O); Pulse Ox 100% ; Weight 72.57 kg; Height 5 nj1 ft. 4 in. ; Pain 5/10; 18:18 BP 148 / 71; Pulse 84; Resp 19; Pulse Ox 98% on R/A; kd3 16:43 Body Mass Index 27.46 (72.57 kg, 162.56 cm) nj1 16:43 Pain Scale: Adult nj1 ED Course: 16:25 Patient arrived in ED. rg4 16:26 sOcar Rivas PA is PHCP. cp 16:26 Sajan Gonzalez DO is Attending Physician. cp 16:45 Triage completed. nj1 16:46 Arm band placed on right wrist. nj1 16:56 Lacy Mancia, ENRRIQUE is Primary Nurse. kd3 17:34 XRAY Finger-Thumb RIGHT In Process Unspecified. EDMS 19:12 No provider procedures requiring assistance completed. Patient did not have IV access jj7 during this emergency room visit. 19:13 Patient has correct armband on for positive identification. Provided Education on: jj7 stitches. Administered Medications: 16:56 Drug: Tetanus-Diphtheria Toxoid IM Adult 0.5 ml IM once; Provide Vaccine Information kd3 Statement (VIS). {Clinical Lab Technologist: Reebonz; Exp: Sat Feb 07 2025; Lot #: [id number]; Series: 1 of 1; Patient Consent: Obtained; Date/Time: ; Source Name: Gilberto Santoyo; Source Relationship: Self; Address Information: [address] [place] [address]; ; Education: Provided; VIS Presented Date: ; VIS Publication: Tetanus/Diphtheria (Td) Vaccine VIS 12/26/2016 (historic)} Route: IM; Site: right deltoid; 19:05 Follow up: Response: No adverse reaction kd3 17:07 Drug: HYDROcodone-acetaminophen PO 5 mg-325 mg 1 tabs PO once Route: PO; kd3 19:05 Follow up: Response: No adverse reaction; Pain is decreased kd3 19:05 Drug: Lidocaine Infiltration (1 %) 5 ml 5 ml Infiltration once; to bedside Volume: 5 kd3 ml; Route: Infiltration; 19:05 Drug: Bupivacaine Infiltration (0.5 %) 5 ml 10 ml Infiltration once Volume: 10 ml; kd3 Route: Infiltration; Medication: 19:13 VIS not applicable for this client. jj7 Outcome: 18:43 Discharge ordered by MD. ori 19:13 Discharged to home ambulatory, jj7 19:13 Condition: stable 19:13 Discharge instructions given to patient, family, Instructed on discharge instructions, follow up and referral plans. medication usage, Demonstrated understanding of instructions, follow-up care, medications, Prescriptions given X 1, 19:13 Patient left the ED. jj7 Signatures: Dispatcher [employer] EDMS Oscar Rivas PA PA cp Garcia, Rubi rg4 Lacy Mancia RN RN kd3 Rashad Sams RN RN jj7 Rossana Scanlon RN RN nj1
[2023-07-02 19:59] VITALS: TEMP 97.8
[2023-07-02 20:01] VITALS: BP 148/71; O2SAT 98
== END 2023-07-02 19:13 | disposition home or self-care (01) ==
LOC: ER 16:23
PROC: 0HQFXZZ Repair Right Hand Skin, External Approach (ICD-10-PCS; principal; 2023-07-02)
DX: S61.011A Laceration without foreign body of right thumb without damage to nail, initial encounter (principal); Z23 Encounter for immunization
CPT/HCPCS: 73140; 90471; 99284; 12002; J2001

== ENCOUNTER 2023-07-09 14:15 | Emergency (ER) | payer OTHER ==
--- OUTSIDE RECORDS SUMMARY | 2023-07-09 14:25 | XMS REPORT | Continuity of Care Document ---
:1950 Author Organization [facility] t Address [address] [facility] [address] [place] [address] Care Team Providers Name Role Phone Brian Rosales Attending Clinician Unavailable LISSET GRAY Attending Clinician Unavailable PEE MALONEY Attending Clinician Unavailable MICHELL RICKETTS Attending Clinician Unavailable Lisset Gray MD Attending Clinician Doctor Unassigned, [place] Attending Clinician Unavailable Only, Ad[facility] Test Attending Clinician Unavailable Pob, [facility] Main Attending Clinician Unavailable LISSET GRAY Admitting Clinician Unavailable Lisset Gray MD Admitting Clinician Payers Payer Name Policy Type Policy Number Effective Date Expiration Date Sharri moreira MEDICARE PART A [id number] 2013 \T\ B 00:00:00 MEDICARE-PART B 5 [id number] 2020 00:00:00 WEB TPA 4 [id number] 2020 00:00:00 Problems Condition Condition Condition Status Onset Resolution Last Treating Co mments Source Name Details Category Date Date Treatment Clinician Date [id number] Mixed Problem Common hyperlipid Spirit emia - [facility] [id number] Essential Problem Comm on (primary) Spirit hypertensi - [facility] on [facility] [id number] Type 2 Problem Common diabetes Spirit mellitus - [facility] with [facility] long-term current use of insulin [id number] 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 [facility] Allergies, Adverse Reactions, Alerts Allergy Allergy Status Severity Reaction(s) Onset Inactive Treating Comm ents Source Name Type Date Date Clinician NO KNOWN Drug Active Univers ALLERGIE Class ity of S [facility] Social History Social Habit Start Date Stop Date Quantity Comments Source History of Tobacco Common Spirit - [facility] Use [facility] Sex Assigned At Common Sp kiana - [facility] Exposure to Not sure [facility] SARS-CoV-2 (event) Medica l Branch Tobacco use and 2020-12-08 2020-12-08 Never used [facility] exposure 00:00:00 00:00:00 Medical [place] Smoking Status Start Date Stop Date Source Never Smoker Common Spirit - [facility] Unknown if ever smoked [facility] Medications Ordered Filled Start Stop Current Ordering Indication Dosage Frequency Signature Comments Components Source Medication Medication Date Date Medication? Clinician (SIG) Name Name aspirin 81 Yes 81mg Take 81 mg U nivers mg chewable 3-25 by mouth ity of tablet 14:37: daily. [address] Fenofibrate Yes 40mg Take 40 mg Univers 40 mg Tab 3-25 by mouth ity of 14:37: daily. [address] metFORMIN Yes 500mg Take 500 Uni vers 500 mg 3-25 mg by ity of tablet 14:37: mouth [address] [place] [address] ([facility] daily with meals. ramipriL 10 Yes 10mg Take 10 mg Univers mg capsule 3-25 by mouth ity o f 14:37: daily. [address] icosapent Yes Take by Unive rs ethyl 3-25 mouth. ity of (VASCEPA 14:37: [address] aspirin 81 Yes 81mg Take 81 mg U nivers mg chewable 3-25 by mouth ity of tablet 14:37: daily. [address] Fenofibrate Yes 40mg Take 40 mg Univers 40 mg Tab 3-25 by mouth ity of 14:37: daily. [address] metFORMIN Yes 500mg Take 500 Uni vers 500 mg 3-25 mg by ity of tablet 14:37: mouth [address] [place] [address] ([facility]) [facility] times [place] daily with meals. ramipriL 10 Yes 10mg Take 10 mg Univers mg capsule 3-25 by mouth ity o f 14:37: daily. [address] icosapent Yes Take by [facility] rs ethyl 3-25 mouth. ity of (VASCEPA 14:37: [place] ORAL) [address] [place] [address] lactated Yes 1000mL at 75 Univer s ringers IV 3-25 mL/hr, ity of infusion 14:15: 1,000 [place], [place] 1,000 mL 00 IV Medical Infusion, [place] CONTINUOUS , Starting Joaquina 12/09/20 at 0915, Until Discontinu ed, Routine, PACU HYDROcodone Yes 1{tbl} 1 tablet, Univers -acetaminop 3-25 Oral, ity of hen (NORCO 14:05: Q6HPRN, [place] 5) 5-325 mg 37 Starting [facility] norma tablet 1 Jo[place]ina [place] tablet 12/09/20 at 0905, Until Discontinu ed, Routine, Pain (scale 4-6), PACU ondansetron Yes 4mg 4 mg, Slow Univers (ZOFRAN 3-25 IV Push, ity of (PF)) 14:05: PRN, 1 [place] injection 4 37 dose, Medical mg Starting Branch Jo[place]ina 12/09/20 at 0905, Until Discontinu ed, Routine, Nausea and Vomiting (N/V), PACU water for Yes PRN, Univers irrigation 3-25 Starting ity o f irrigation 14:00: [place] solution 00 12/09/20 at Medic al 0900, [place] Until Discontinu ed, Routine, Intra-op NaCl 0.9% Yes PRN, Univers (NS) 3-25 Starting ity of injection 13:59: [place] 00 12/09/20 at [facility] 0859, [place] Until Discontinu ed, Routine, Intra-op neomycin-po Yes PRN, [facility] s lymyxin-dex 3-25 Starting ity of amethasone 13:59: [place] (MAXITROL) 00 12/09/20 at [facility] ical 3.5 0859[facility] mg/g-10,000 Until unit/g-0.1 Discontinu % ed, ophthalmic Routine, ointment Intra-op gentamicin 2021-0 Yes PRN, Univers injection 25 Starting ity of 13:58: [place] 00 12/09/20 at [facility] [address] [place] [address] Until Discontinu ed, BASSAM, Intra-op EPINEPHrine Yes PRN, Univer s (PF) - Starting ity of 1:1,000 (1 13:57: Jo[place] mg/mL) 00 12/09/20 at [facility] (ADRENALIN 0857, Branch (PF)) Until injection Discontinu ed, Routine, Intra-op DUOVISC Yes PRN, Univers (DUOVISC 12-09 Starting ity of VISCO 13:57: [place] ELASTIC) 3 12/09/20 at [facility] ical %-4 %(0.5 0857, [place] mL) 1 % Until (0.55 mL) Discontinu intraocular ed, injection Routine, Intra-op dexamethaso Yes PRN, Univer s ne 12-09 Starting ity of (DECADRON 13:56: [place] PHOSPHATE) 12/09/20 at [facility] ical injection [address] [place] [address] Until Discontinu ed, Routine, Intra-op ceFAZolin Yes PRN, Univers (ANCEF) 12-09 Starting ity of injection 13:56: Jo[place] 00 12/09/[address] Until Discontinu ed, BASSAM, Intra-op balanced Yes PRN, Univers salt soln 12-09 Starting ity of no.2 irrig. 13:55: Jo[place]ina [place] (BSS) 12/09/20 at [facility] ophthalmic 08, [place] solution Until Discontinu ed, Routine, Intra-op tetracaine Yes PRN, Univers (PONTOCAINE 12-09 Starting ity of ) 0.5 % 13:41: Jo[place] ophthalmic 00 12/09/20 at [facility] ical drops [address] [place] [address] Until Discontinu ed, Routine, Intra-op eye block 0 Yes PRN, Univers syringe 11 12-09 Starting ity o f mL 13:41: Jo[place]ina [place] 00 12/09/20 at [facility] [address] [place] [address] Until Discontinu ed, Intra-op mydriatic 202- No [...] 1,000 mL 00 :00 IV Medical Infusion, [place] ONCE, 1 dose, Joaquina 12/09/20 at 0745, Routine, DSU Pre-op metFORMIN Yes 500mg Take 500 Uni vers 500 mg 3-23 mg by ity of tablet 18:23: mouth 2 [place] [address] (two) [facility] daily with meals. ramipriL 10 Yes 10mg Take 10 mg Univers mg capsule -23 by mouth ity o f 18:23: daily. [address] aspirin 81 Yes 81mg Take 81 mg U nivers mg chewable 3-23 by mouth ity of tablet 18:23: daily. [address] Fenofibrate Yes 40mg Take 40 mg Univers 40 mg Tab 3-23 by mouth ity of 18:23: daily. [address] Atorvastati Atorvastati No 1{table QD Atorvastat n Calcium n Calcium t} in Calcium 20 MG 20 MG 20 MG Dorzolamide Dorzolamide No 1{drop_ BID Dorzolamid HCl-Timolol HCl-Timolol into_af e Mal Mal fected_ HCl-Timolo 22.3-6.8 22.3-6.8 eye} l Mal MG/ML MG/ML 22.3-6.8 MG/ML Dupont 3 Dupont 3 No Dupont 3 Fish Oil Fish Oil No Fish Oil Dupont-3 Dupont-3 Dupont-3 Ramipril 10 Ramipril 10 No 1{capsu QD [...] eye} l Mal MG/ML MG/ML 22.3-6.8 MG/ML Dupont 3 Dupont 3 No Dupont 3 Fish Oil Fish Oil No Fish Oil Dupont-3 Dupont-3 Dupont-3 Ramipril 10 Ramipril 10 No 1{capsu QD [...] 500 MG t_with_ HCl 500 MG a_meal} Rocklatan Rocklatan No 1{drop_ QD Rocklatan 0.02-0.005 0.02-0.005 into_af 0.02-0.005 % % fected_ % eye} Atorvastati Atorvastati No 1{table QD Atorvastat n Calcium n Calcium t} in Calcium 20 MG 20 MG 20 MG Dupont 3 Dupont 3 No Dupont 3 Ramipril 10 Ramipril 10 No 1{capsu [...] Fish Oil Fish Oil No Fish Oil Dupont-3 Dupont-3 Dupont-3 metFORMIN metFORMIN No 1{table QD metFORMIN HCl 500 MG HCl 500 MG t_with_ HCl 500 MG a_meal} Fish Oil Fish Oil No Fish Oil Dupont-3 Dupont-3 Dupont-3 Atorvastati Atorvastati No 1{table QD Atorvastat n [...] QD Ramipril MG MG le} 10 MG Dupont 3 Dupont 3 No Dupont 3 Dorzolamide Dorzolamide No 1{drop_ BID Dorzolamid HCl-Timolol HCl-Timolol into_af e Mal Mal fected_ HCl-Timolo 22.3-6.8 22.3-6.8 eye} l Mal MG/ML MG/ML 22.3-6.8 MG/ML metFORMIN metFORMIN No 1{table QD metFORMIN HCl 500 MG HCl 500 MG t_with_ HCl 500 MG a_meal} Fish Oil Fish Oil No Fish Oil Dupont-3 Dupont-3 Dupont-3 metFORMIN metFORMIN No 1{table QD metFORMIN HCl [...] QD Ramipril MG MG le} 10 MG Dupont 3 Dupont 3 No Dupont 3 Dorzolamide Dorzolamide No 1{drop_ BID Dorzolamid HCl-Timolol HCl-Timolol into_af e Mal Mal fected_ HCl-Timolo 22.3-6.8 22.3-6.8 eye} l Mal MG/ML MG/ML 22.3-6.8 MG/ML [facility] No 1{drop_ QD Rocklatan 0.02-0.005 0.02-0.005 into_af 0.02-0.005 % % fected_ % eye} metFORMIN metFORMIN No 1{table QD metFORMIN HCl 500 MG HCl 500 MG t_with_ HCl 500 MG a_meal} Aspirin Aspirin No 1{table QD Aspirin Adult Low Adult Low t} Adult Low Dose 81 MG Dose 81 MG Dose 81 MG Fish Oil Fish Oil No Fish Oil Dupont-3 Dupont-3 Dupont-3 Atorvastati Atorvastati No 1{table QD Atorvastat n Calcium n Calcium t} in Calcium 10 MG 10 MG 10 MG Ramipril 10 Ramipril 10 No 1{capsu QD Ramipril MG MG le} 10 MG [facility] No 1{drop_ QD Rocklatan 0.02-0.005 0.02-0.005 into_af 0.02-0.005 % % fected_ % eye} Dupont 3 Dupont 3 No Dupont 3 Ramipril 10 Ramipril 10 No 1{capsu QD Ramipril MG MG le} 10 MG metFORMIN metFORMIN No 1{table QD metFORMIN HCl 500 MG HCl 500 MG t_with_ HCl 500 MG a_meal} Dorzolamide Dorzolamide No 1{drop_ BID Dorzolamid HCl-Timolol HCl-Timolol into_af e Mal Mal fected_ HCl-Timolo 22.3-6.8 22.3-6.8 eye} l Mal MG/ML MG/ML 22.3-6.8 MG/ML [facility] No 1{drop_ QD Rocklatan 0.02-0.005 0.02-0.005 into_af 0.02-0.005 % % fected_ % eye} Atorvastati Atorvastati No 1{table QD Atorvastat n Calcium n Calcium t} in Calcium 20 MG 20 MG 20 MG Dupont 3 Dupont 3 No Dupont 3 Ramipril 10 Ramipril 10 No 1{capsu [...] Fish Oil Fish Oil No Fish Oil Dupont-3 Dupont-3 Dupont-3 metFORMIN metFORMIN No 1{table QD metFORMIN HCl 500 MG HCl 500 MG t_with_ HCl 500 MG a_meal} Rocklatan Rocklatan No 1{drop_ QD Rocklatan 0.02-0.005 0.02-0.005 into_af 0.02-0.005 % % fected_ % eye} Ramipril 10 Ramipril 10 No 1{capsu QD Ramipril MG MG le} 10 MG metFORMIN metFORMIN No 1{table QD metFORMIN HCl 500 MG HCl 500 MG t_with_ HCl 500 MG a_meal} Dupont 3 Dupont 3 No Dupont 3 Aspirin Aspirin No 1{table QD Aspirin Adult Low Adult Low t} Adult Low Dose 81 MG Dose 81 MG Dose 81 MG Dorzolamide Dorzolamide No 1{drop_ BID Dorzolamid HCl-Timolol HCl-Timolol into_af e Mal Mal fected_ HCl-Timolo 22.3-6.8 22.3-6.8 eye} l Mal MG/ML MG/ML 22.3-6.8 MG/ML Fish Oil Fish Oil No Fish Oil Dupont-3 Dupont-3 Dupont-3 Vital Signs Vital Name Observation Time Observation Value Comments Source height 2022-07-31 10:00:00 68.5 [in_i] [facility] weight 2022-07-31 10:00:00 163.9 [lb_av] [facility] temperature 2022-07-31 10:00:00 97.7 [degF] [facility] bmi 2022-07-31 10:00:00 24.56 kg/m2 [facility] oximetry 2022-07-31 10:00:00 98 % Common [facility] respiratory rate 2022-07-31 10:00:00 18 /min Comm on [facility] blood pressure 2022-07-31 10:00:00 137 mm[Hg] Common [facility] - systolic [facility] blood pressure 2022-07-31 10:00:00 79 mm[Hg] Common [facility] - diastolic [facility] height 2022-03-29 08:40:00 68.5 [in_i] Common [facility] weight 2022-03-29 08:40:00 163.8 [lb_av] [facility] temperature 2022-03-29 08:40:00 98.0 [degF] [facility] bmi 2022-03-29 08:40:00 24.54 kg/m2 [facility] oximetry 2022-03-29 08:40:00 98 % [facility] respiratory rate 2022-03-29 08:40:00 18 /min Comm on [facility] blood pressure 2022-03-29 08:40:00 137 mm[Hg] Common [facility] - systolic [facility] blood pressure 2022-03-29 08:40:00 72 mm[Hg] Common [facility] diastolic [facility] height 2022-03-29 08:50:00 68.5 [in_i] Common [facility] weight 2022-03-29 08:50:00 163.8 [lb_av] [facility] temperature 2022-03-29 08:50:00 98.0 [degF] [facility] bmi 2022-03-29 08:50:00 24.54 kg/m2 [facility] oximetry 2022-03-29 08:50:00 98 % [facility] respiratory rate 2022-03-29 08:50:00 18 /min Comm on [facility] blood pressure 2022-03-29 08:50:00 137 mm[Hg] Common [facility] - systolic [facility] blood pressure 2022-03-29 08:50:00 72 mm[Hg] Common [facility] - diastolic [facility] height 2022-02-22 10:50:00 68 [in_i] [facility] weight 2022-02-22 10:50:00 164.1 [lb_av] Common [facility] temperature 2022-02-22 10:50:00 98.2 [degF] Common [facility] bmi 2022-02-22 10:50:00 24.95 kg/m2 [facility] oximetry 2022-02-22 10:50:00 97 % [facility] respiratory rate 2022-02-22 10:50:00 18 /min Comm on [facility] blood pressure 2022-02-22 10:50:00 135 mm[Hg] Common [facility] - systolic [facility] blood pressure 2022-02-22 10:50:00 74 mm[Hg] Common [facility] diastolic [facility] Systolic blood 2020-12-09 14:25:00 121 mm[Hg] Univer sity [facility] Diastolic blood 2020-12-09 14:25:00 74 mm[Hg] Unive rsity [facility] Heart rate 2020-12-09 14:25:00 60 /min [facility] Body temperature 2020-12-09 14:25:00 36.67 [facility]an [facility] 2020-12-09 14:25:00 26 /min [facility] Oxygen saturation in 2020-12-09 14:25:00 98 /min [facility] blood by [facility] Pulse oximetry Branch Body height 2020-12-08 17:15:00 165.1 cm [facility] Body weight 2020-12-08 17:15:00 79.379 kg [facility] BMI 2020-12-08 17:15:00 29.12 kg/m2 [facility] Procedures Procedure Date / Time Performed Performing Clinician Sourc e POCT GLUCOSE(AGE 2020-12-09 12:30:00 Leonardo Crawford [facility] >30DAYS) [facility] POCT GLUCOSE 2020-12-09 12:19:00 Lisset Gray [facility] (AUTOMATED) [facility] [place] DAY SURGERY - ADC 2020-12-09 05:01:00 Doctor Unassigned, No [facility] ASSIGNMENT OF BENEFITS 2020-11-30 16:01:25 Doctor Unassigned, No [facility] Encounters Start End Encounter Admission Attending Care Care Encounter Source Date/Time Date/Time Type Type Clinicians Facility Department ID 2023-07-05 Outpatient Rosales, STLMLC STLMLC [id number] Common 15:47:00 Brian [id number] [facility] 2023-03-26 Outpatient Rosales, STLMLC STLMLC [id number] Common 15:14:01 Brian [id number] [facility] 2022-11-24 Outpatient Rosales, STLMLC STLMLC [id number] Common 08:52:03 Brian [id number] [facility] 2022-08-08 Outpatient Rosales, STLMLC STLMLC [id number] Common 12:29:01 Brian [id number] [facility] 2022-07-27 Outpatient Rosales, STLMLC STLMLC [id number] Common 09:58:02 Brian [id number] [facility] 2022-02-28 Outpatient Rosales, STLMLC STLMLC [id number] Common 16:01:04 Brian [id number] [facility] 2021-07-17 Outpatient R MONSERRAT, [facility] OPH [id number] Univers 06:19:47 LISSET pathak [facility] 2022-09-05 2022-09-05 (TEL) STLMLC STLMLC [id number] Co mmon 00:00:00 00:00:00 [facility] 2022-09-04 2022-09-04 Outpatient LYLY MALONEY [id number] [place] 00:00:00 00:00:00 PEE saavedra 2022-07-31 2022-07-31 OFFICE STLMLC STLMLC [id number] Co mmon 00:00:00 00:00:00 VISIT Spirit ESTAB PT - CHI LEVEL 4 [facility] 2022-06-29 2022-06-29 (TEL) STLMLC STLMLC [id number] Co mmon 00:00:00 00:00:00 Spirit - [facility] 2022-03-29 2022-03-29 OFFICE STLMLC STLMLC [id number] Co mmon 00:00:00 00:00:00 VISIT Spirit ESTAB PT - CHI LEVEL 4 [facility] 2022-03-29 2022-03-29 SUB ANNUAL STLMLC STLMLC [id number] Common 00:00:00 00:00:00 MCR [facility] WELLNESS - CHI VISIT [facility] 2022-02-22 2022-02-22 (TEL) STLMLC STLMLC [id number] Co mmon 00:00:00 00:00:00 Spirit - [facility] 2022-02-22 2022-02-22 OFFICE STLMLC STLMLC [id number] Co mmon 00:00:00 00:00:00 VISIT NEW Spir it PT LEVEL 3 - CH[facility] 2021-12-16 2021-12-16 Outpatient LYLY MALONEY [id number] [place] 00:00:00 00:00:00 PEE saavedra 2021-05-04 2021-05-04 Outpatient LYLY MALONEY [id number] [place] 16:00:00 16:00:00 PEE saavedra 2020-12-14 2020-12-14 Outpatient Willi RICKETTS [facility] [id number] Univers 10:40:00 10:40:00 MICHELL ity of [facility] 2020-12-09 2020-12-09 [facility] [id number] Univers 07:05:00 09:37:00 Encounter Lisset Delgado 350.1.13.10 ity Everardo Sl[place] 4[place]7.2.686 [place] [phone] [place] [id number] [place] 2020-12-09 2020-12-09 Orders Doctor SHAILESH [id number] Univers 00:00:00 00:00:00 Only Unassigned, IAM 350.1.13.10 ity of [place] [facility] 4.2.7.2.686 Lew as [id number] [facility] 009 [place] 2020-12-08 2020-12-08 Laboratory Only, [facility] Test [facility] 1.2.840. 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 April, [facility] Lab Main [facility] 1.2.8 40.114 [id number] Univers 11:04:15 11:19:15 Visit Lisset Gray 350.1.1 3.10 [place]y [place] 4[place]2.7.2.686 [place] [facility] [phone] [address] 2020-11-30 2020-11-30 Outpatient Willi GRAY [facility] [id number] Univers 10:45:00 10:45:00 LISSET pathak [facility] 2020-11-30 2020-11-30 Orders Doctor SHAILESH [id number] Univers 00:00:00 00:00:00 Only UnassignedIAM 350.1.13.10 ity of [place] [facility] 4.2.7.2.686 [place] as [id number] [address] 2020-11-23 2020-11-23 Outpatient Willi RICKETTS [facility] [id number] Univers 10:20:00 10:21:52 MICHELL pathak [facility] Results Test Description Test Time Test Comments Results Result Comments Source Lipid Panel With LDL/HDL Ratio 2022-03-21 00:00:00 Test Item Value Reference Range Interpretation Comme nts Cholesterol, Total (test code 113 mg/dL See_Comment [Automated message] The system = 3-3) which generated this result transmitted ref erence range: 100-199 mg/dL. The reference range was not u sed to interpret this result as normal/abnormal. Triglycerides (test code = 91 mg/dL See_Comment [Automated message] The system 6461-8) which generated this result transmitted ref erence range: 0-149 mg/dL. Th e reference range was not used to interpret this result as ning l/abnormal. HDL Cholesterol (test code = 60 mg/dL See_Comment [Automated message] The system 5-9) which generated this result transmitted ref erence range: >39 mg/dL. The refe rence range was not used to int erpret this result as ning l/abnormal. Prostate-Specific Ag, [id number] 00:00:00 Test Item Value Reference Range Interpretation Comments Prostate Specific Ag 1.3 ng/mL See_Comment [Autom ated message] (test code = 2857-1) The sys tem which generated this result transmitted ref erence range: 0.0-4.0 ng/mL. The reference r kyle was not used to int erpret this result as normal/abnormal . Microalbumin/Creat Ratio, Random [id number] 00:00:00 Test Item Value Reference Range Interpretation Comments Creatinine, Urine 85.3 mg/dL Not Estab. mg/dL (test code = 2161-8) Albumin, Urine 8.0 ug/mL Not Estab. ug/mL (test code = 56329-0) Alb/Creat Ratio 9 mg/g creat See_Comment [Automated message] (test code = The system [employer] h 36900-8) generated this result transmitted ref erence range: 0-29 mg/ g creat. The reference r kyle was not used to int erpret this result as normal/abnormal . Hemoglobin [id number] 00:00:00 Test Item Value Reference Range Interpretation Comments Hemoglobin A1c (test 6.1 % See_Comment H [Autom ated message] The code = 4548-4) system which generated this result tra nsmitted reference range : 4.8-5.6 %. The referenc e range was not used to interpret this result as normal/abnormal . Comp. Metabolic Panel (14) ([facility])2022-03-21 00:00:00 Test Item Value Reference Range Interpretation Comments Glucose (test code = 104 mg/dL See_Comment H [Autom ated message] 2355-7) The system [employer] generated this result transmitted ref erence range: 65-99 mg /dL. The reference r kyle was not used to interpret this result as normal/abnor mal. BUN (test code = 11 mg/dL See_Comment [Automated message] 3094-0) The system [employer] generated this result transmitted ref erence range: 8-27 mg/ dL. The reference r kyle was not used to interpret this result as normal/abnor mal. Creatinine (test code 0.81 mg/dL See_Comment [Auto mated message] = 2160-0) The system [employer] generated this result transmitted ref erence range: 0.76-1.2 7 mg/dL. The refe rence range was not u sed to interpret this result as normal/abnor mal. BUN/Creatinine Ratio 14 10-24 (test code = 3097-3) Sodium (test code = 138 mmol/L See_Comment [Automa benjamin message] 5081-2) The system [employer] generated this result transmitted ref erence range: 134-144 mmol/L. The ref erence range was not u sed to interpret this result as normal/abnor mal. Potassium (test code = 4.6 mmol/L See_Comment [Aut omated message] 2156-3) The system [employer] generated this result transmitted ref erence range: 3.5-5.2 mmol/L. The ref erence range was not u sed to interpret this result as normal/abnor mal. Chloride (test code = 101 mmol/L See_Comment [Auto mated message] 1435-0) The system [employer] generated this result transmitted ref erence range: 96-106 m mol/L. The reference r kyle was not used to interpret this result as normal/abnor mal. Carbon Dioxide, Total 26 mmol/L See_Comment [Auto mated message] (test code = 2028-05) The sys tem which generated this result transmitted ref erence range: 20-29 mm ol/L. The reference r kyle was not used to interpret this result as normal/abnor mal. Calcium (test code = 9.7 mg/dL See_Comment [Autom ated message] 70800-3) The system [facility] generated this result transmitted ref erence range: 8.6-10.2 mg/dL. The refe rence range was not u sed to interpret this result as normal/abnor mal. Protein, Total (test 7.2 g/dL See_Comment [Autom ated message] code = 2885-2) The system [facility] generated this result transmitted ref erence range: 6.0-8.5 g/dL. The reference r kyle was not used to interpret this result as normal/abnor mal. Albumin (test code = 4.8 g/dL See_Comment H [Autom ated message] 1751-7) The system [facility] generated this result transmitted ref erence range: 3.7-4.7 g/dL. The reference r kyle was not used to interpret this result as normal/abnor mal. Globulin, Total (test 2.4 g/dL See_Comment [Auto mated message] code = 65004-1) The system [facility] generated this result transmitted ref erence range: 1.5-4.5 g/dL. The reference r kyle was not used to interpret this result as normal/abnor mal. A/G Ratio (test code = 2.0 1.2-2.2 1759-0) Bilirubin, Total (test 1.8 mg/dL See_Comment H [Aut omated message] code = 1975-2) The system [facility] generated this result transmitted ref erence range: 0.0-1.2 mg/dL. The reference r kyle was not used to interpret this result as normal/abnor mal. Alkaline Phosphatase 58 IU/L See_Comment [Autom ated message] (test code = 6768-6) The [facility] tem which generated this result transmitted ref erence range: 44-121 I U/L. The reference r kyle was not used to interpret this result as normal/abnor mal. AST (SGOT) (test code 22 IU/L See_Comment [Auto mated message] = 1920-8) The system whic h generated this result transmitted ref erence range: 0-40 IU/ L. The reference range was not used to int erpret this result as normal/abnormal . ALT (SGPT) (test code 18 IU/L See_Comment [Auto mated message] = 0702-6) The system [employer] [facility] generated this result transmitted ref erence range: 0-44 IU/ L. The reference range was not used to int erpret this result as normal/abnormal . CBC With Differential/[id number] 00:00:00 Test Item Value Reference Range Interpretation Comments WBC (test code = 5.8 x10E3/uL See_Comment [Automated 4327-2) message] The sy stem which generated this result transmitted reference range : 3.4-10.8 x10E3/ uL. The reference r kyle was not used to interpret this result as normal/abnormal . RBC (test code = 5.29 x10E6/uL See_Comment [Automate d 259-8) message] The sy stem which generated this result transmitted reference range : 4.14-5.80 x10E6 /uL. The reference r kyle was not used to interpret this result as normal/abnormal . Hemoglobin (test code 15.3 g/dL See_Comment [Auto mated = 758-7) message] The sy stem which generated this result transmitted reference range : 13.0-17.7 g/dL. The reference range was not used to interpret this result as normal/abnormal . Hematocrit (test code 47.2 % See_Comment [Auto mated = 4224-3) message] The sy stem which generated this result transmitted reference range : 37.5-51.0 %. Th e reference range was not used to interpret this result as normal/abnormal . MCV (test code = 89 fL See_Comment [Automated 797-2) message] The sy stem which generated this result transmitted reference range : 79-97 fL. The reference range was not used to interpret this result as normal/abnormal . MCH (test code = 28.9 pg See_Comment [Automated 665-6) message] The sy stem which generated this result transmitted reference range : 26.6-33.0 pg. T he reference range was not used to interpret this result as normal/abnormal . MCHC (test code = 32.4 g/dL See_Comment [Automate d 786-4) message] The sy stem which generated this [...] % Not Estab. % (test code = 93656-7) Immature Grans (Abs) 0.0 x10E3/uL See_Comment [Autom ated (test code = 11261-3) messag e] The system which generated this result transmitted reference range : 0.0-0.1 x10E3/u L. The reference r kyle was not used to interpret this result as normal/abnormal . NRBC (test code = 53057-0) Hematology Comments: (test code = 44799-6) TSH reflex to [id number] 00:00:00 Test Item Value Reference Range Interpretation Comments TSH (test code = 2.400 uIU/mL See_Comment [Automated message] The 32029-2) system which ge nerated this result tra nsmitted reference range : 0.450-4.500 uIU /mL. The reference range was not used to interpr et this result as normal/abnormal . POCT GLUCOSE (AUTOMATED)2020-12-09 13:20:45 Test Item Value Reference Range Interpretation Comments POCT GLU (test code = 6377058940) 94 mg/dL 70-110 Lab Interpretation (test code = Normal 87686-9) [id number] 12:30:00 Test Item Value Reference Range Interpretation Comments POCT Glu (age>30days) (test code = 94 mg/dL 70-110 3342) [facility]
--- NOTE | 2023-07-09 14:44 | EDPHYS ---
Physician Documentation [facility] Name: Gilberto Santoyo Age: 73 yrs Sex: Male : 1950 Arrival Date: 07/09/2023 Time: 14:15 Bed IW1 Private MD: ED Physician Beltran Landry HPI: 07/09 14:33 This 73 yrs old Male presents to ER via Ambulatory with complaints of Suture jh7 Removal. 14:33 The patient has sutures on the palmar aspect of distal phalanx of right thumb. Previous jh7 treatment: the care was rendered at 7 days ago. Historical: - Allergies: 14:33 No Known Allergies; iw - PMHx: 14:33 diabetes mellitus; Hypercholesterolemia; Hypertensive disorder; iw - PSHx: 14:33 hernia repair; iw - Immunization history:: Adult Immunizations unknown. - Social history:: Smoking status: Patient denies any tobacco usage or history of. ROS: 14:20 Constitutional: Negative for fever, chills, and weight loss, Cardiovascular: Negative jh7 for chest pain, palpitations, and edema, Respiratory: Negative for shortness of breath, cough, wheezing, and pleuritic chest pain, MS/Extremity: Negative for injury and deformity, Neuro: Negative for headache, weakness, numbness, tingling, and seizure, 14:20 All other systems are negative, 14:33 Skin: Positive for 7 intact sutures in palmar aspect of right thumb, jh7 Exam: 14:20 Constitutional: This is a well developed, well nourished patient who is awake, alert, jh7 and in no acute distress. Cardiovascular: Regular rate and rhythm with a normal S1 and S2. No gallops, murmurs, or rubs. Normal PMI, no JVD. No pulse deficits. Respiratory: Lungs have equal breath sounds bilaterally, clear to auscultation and percussion. No rales, rhonchi or wheezes noted. No increased work of breathing, no retractions or nasal flaring. MS/ Extremity: Pulses equal, no cyanosis. Neurovascular intact. Full, normal range of motion. Neuro: Awake and alert, GCS 15, oriented to person, place, time, and situation. Motor strength 5/5 in all extremities. Sensory grossly intact. Normal gait. 14:20 Skin: Wound recheck: Suture laceration closure: the wound is healing well, no drainage, no erythema, no swelling, mild dehiscence, Vital Signs: 14:32 BP 150 / 89; Pulse 69; Resp 18; Temp 97.6; Pulse Ox 100% on R/A; Weight 74.39 kg; iw Height 5 ft. 6 in. ; Pain 0/10; 14:32 Body Mass Index 26.47 (74.39 kg, 167.64 cm) iw 14:32 Pain Scale: Adult iw Procedures: 14:20 Suture/Staple removal: Removed 7 sutures, from palmar aspect of distal phalanx of right jh7 thumb, site appears well healed, dressed with gauze bandage, Patient tolerated well. MDM: 14:19 Patient medically screened. [facility] 14:20 Data reviewed: vital signs, nurses notes. [facility] 14:20 Counseling: I had a detailed discussion with the patient and/or guardian regarding the [facility] historical points, exam findings, and any diagnostic results supporting the discharge/admit diagnosis, to return to the emergency department if symptoms worsen or persist or if there are any questions or concerns that arise at home. Special discussion: Very mild dehiscence in the center of the wound. Steri-Strips applied in the wound was bandaged with a nonadherent dressing. Patient may remove the dressing in 24 hours and informed him that the Steri-Strips will fall off on their own. No signs and symptoms of infection noted.. Administered Medications: No medications were administered Disposition: 19:03 Co-signature as Attending Physician, Beltran Landry MD I reviewed the patient's care rn provided by the Advanced Practice Provider and agree with the diagnosis and treatment plan. Disposition Summary: 07/09/23 14:43 Discharge Ordered Notes: Location: Home [facility] Problem: new [facility] Symptoms: are resolved jh7 Condition: Stable jh7 Diagnosis - Encounter for removal of sutures 7 Followup: [facility] - With: Private Physician - When: 2 - 3 days - Reason: Recheck today's complaints Discharge Instructions: - Discharge Summary Sheet [facility] - How to Change Your Wound Dressing 7 - Suture Removal, Care After jh7 Forms: - Medication Reconciliation Form 7 - Thank You Letter 7 - Patient Portal Instructions [facility] - Leadership Thank You Letter [facility] Signatures: Kallie Sheth RN RN iw Nieto, Roman, MD MD rn Hadash, Jennifer SIEVE REPAIRER SIEVE REPAIRER [facility] Corrections: (The following items were deleted from the chart) 17: 14:33 Skin: Positive for 7 intact sutures in palmar aspect of right thumb, [place] [id number] 17: 17:07 Constitutional: Negative for fever, chills, and weight loss, Cardiovascular: [facility] Negative for chest pain, palpitations, and edema, Respiratory: Negative for shortness of breath, cough, wheezing, and pleuritic chest pain, MS/Extremity: Negative for injury and deformity, Neuro: Negative for headache, weakness, numbness, tingling, and seizure, [facility] 17: 17:07 All other systems are negative, [place] [id number] 17: 17:07 Skin: Wound recheck: Suture laceration closure: the wound is healing well, no [facility] drainage, no erythema, no swelling, mild dehiscence, [facility] : 17:07 Constitutional: This is a well developed, well nourished patient who is awake, [facility] alert, and in no acute distress. Cardiovascular: Regular rate and rhythm with a normal S1 and S2. No gallops, murmurs, or rubs. Normal PMI, no JVD. No pulse deficits. Respiratory: Lungs have equal breath sounds bilaterally, clear to auscultation and percussion. No rales, rhonchi or wheezes noted. No increased work of breathing, no retractions or nasal flaring. MS/ Extremity: Pulses equal, no cyanosis. Neurovascular intact. Full, normal range of motion. Neuro: Awake and alert, GCS 15, oriented to person, place, time, and situation. Motor strength 5/5 in all extremities. Sensory grossly intact. Normal gait. [facility] : 17:07 Suture/Staple removal: Removed 7 sutures, from palmar aspect of distal phalanx of [facility] right thumb, site appears well healed, dressed with gauze bandage, Patient tolerated well, [facility]
--- NOTE | 2023-07-09 14:44 | ER ---
Nurse's Notes [facility] Name: Gilberto Santoyo Age: 73 yrs Sex: Male : 1950 Arrival Date: 07/09/2023 Time: 14:15 Bed IW1 Private MD: Diagnosis: Encounter for removal of sutures Presentation: 07/09 14:32 Chief complaint: Patient states: here to have sutures removed to right thumb. Pt had iw sutures placed 7 days ago. Coronavirus screen: Vaccine status: Patient reports receiving the 2nd dose of the covid vaccine. Client denies travel out of the [place] in the last 14 days. Ebola Screen: Patient denies travel to an Ebola-affected area in the 21 days before illness onset. No symptoms or risks identified at this time. Initial Sepsis Screen: Does the patient meet any 2 criteria? No. Patient's initial sepsis screen is negative. Does the patient have a suspected source of infection? No. Patient's initial sepsis screen is negative. Risk Assessment: Do you want to hurt yourself or someone else?. Risk Assessment: Do you want to hurt yourself or someone else? Patient reports no desire to harm self or others. 14:32 Method Of Arrival: Ambulatory iw 14:32 Acuity: JONN 5 iw Triage Assessment: 14:34 General: Appears in no apparent distress. comfortable, Behavior is calm, cooperative. iw Pain: Denies pain. EENT: No deficits noted. No signs and/or symptoms were reported regarding the EENT system. Neuro: No deficits noted. Brennan Agitation-Sedation Scale (RASS): 0 - Alert and Calm Level of Consciousness is awake, alert, obeys commands, Oriented to person, place, time, situation. Cardiovascular: No deficits noted. Patient's skin is warm and dry. Respiratory: No deficits noted. Airway is patent Respiratory effort is even, unlabored, Respiratory pattern is regular, symmetrical. GI: No deficits noted. No signs and/or symptoms were reported involving the gastrointestinal system. : No deficits noted. No signs and/or symptoms were reported regarding the genitourinary system. Derm: No deficits noted. Skin is intact, Skin is pink, warm \\T\\ dry. Musculoskeletal: No deficits noted. No signs and/or symptoms reported regarding the musculoskeletal system. Historical: - Allergies: 14:33 No Known Allergies; iw - PMHx: 14:33 diabetes mellitus; Hypercholesterolemia; Hypertensive disorder; iw - PSHx: 14:33 hernia repair; iw - Immunization history:: Adult Immunizations unknown. - Social history:: Smoking status: Patient denies any tobacco usage or history of. Screenin:35 [facility] ED Fall Risk Assessment (Adult) History of falling in the last 3 months, iw including since admission No falls in past 3 months (0 pts) Confusion or Disorientation No (0 pts) Intoxicated or Sedated No (0 pts) Impaired Gait No (0 pts) Mobility Assist Device Used No (0 pt) Altered Elimination No (0 pt) Score/Fall Risk Level 0 - 2 = Low Risk Oriented to surroundings, Maintained a safe environment, Hourly rounding (assess needs \\T\\ fall precautionary measures) done. Abuse screen: Denies threats or abuse. Denies injuries from another. Nutritional screening: No deficits noted. Tuberculosis screening: No symptoms or risk factors identified. Vital Signs: 14:32 BP 150 / 89; Pulse 69; Resp 18; Temp 97.6; Pulse Ox 100% on R/A; Weight 74.39 kg; iw Height 5 ft. 6 in. ; Pain 0/10; 14:32 Body Mass Index 26.47 (74.39 kg, 167.64 cm) iw 14:32 Pain Scale: Adult iw ED Course: 14:18 Patient arrived in ED. im 14:19 [facility] Alberts [facility] 14:19 Beltran Landry MD is Attending Physician. [facility] 14:33 Triage completed. iw 14:35 Arm band placed on Patient placed in waiting room. iw 14:35 Patient has correct armband on for positive identification. Provided Education on: ER iw process and procedures. . 14:36 No provider procedures requiring assistance completed. Patient did not have IV access iw during this emergency room visit. 14:38 Dressings: non-adherent dressing x 1 palmar aspect of distal phalanx of right thumb iw Steri strips 1/8 " X 2;. Administered Medications: No medications were administered Medication: 14:35 VIS not applicable for this client. iw Outcome: 14:43 Discharge ordered by . [facility] 14:56 Discharged to home ambulatory, with significant other, [facility] 14:56 Condition: good 14:56 Discharge instructions given to patient, Instructed on discharge instructions, follow up and referral plans. Demonstrated understanding of instructions, follow-up care, wound care, 14:56 Patient left the ED. cm10 Signatures: Kallie Sheth, RN RN Marley Polanco FNP FNP jh7 Rita Elizabeth Clarissa, RN RN cm10
== END 2023-07-09 14:56 | disposition home or self-care (01) ==
LOC: ER 14:15
DX: Z48.02 Encounter for removal of sutures (principal)
CPT/HCPCS: 99283